=== PATIENT | male | born 1990 | race Two or more races ===

== ENCOUNTER 2022-12-14 21:54 | Emergency (ER) | payer BC, OTHER ==
[~2022-12-14] VITALS: Ht 177.8 cm; Wt 87.0 kg
[2022-12-15 02:23] VITALS: BP 117/62
[2022-12-15] MEDS ORDERED: KETOROLAC TROMETH 30 MG/ML 1ML VIAL IM ONE ×2 (02:45→03:00)
== END 2022-12-15 05:24 | disposition home or self-care (01) ==
LOC: ER 22:03
DX: S93.402A Sprain of unspecified ligament of left ankle, initial encounter (principal); F17.210 Nicotine dependence, cigarettes, uncomplicated; X50.1XXA Overexertion from prolonged static or awkward postures, initial encounter; Y93.89 Activity, other specified; Y92.89 Other specified places as the place of occurrence of the external cause; Y99.8 Other external cause status
CPT/HCPCS: 73610; 73630; 96372; 99284; J1885